=== PATIENT | male | born 1995 | race Caucasian/White ===

== ENCOUNTER 2021-05-05 17:33 | Inpatient (IN) ==
[2021-05-05] MEDS ORDERED: ONDANSETRON INJ 2 MG/ML 2 ML VIAL IV STA (18:27)
[2021-05-05] MEDS ORDERED: PANTOprazole 80 MG in DEXTROSE 5% 100 ML IV ONE (18:27)
[2021-05-05] MEDS ORDERED: FAMOTIDINE 20MG IV PUSH 20 MG/5 ML SYR IV STA (18:27)
[2021-05-05] MEDS ORDERED: SODIUM CHLORIDE 0.9% 1000ML 1,000 ML IV SCH (18:30)
--- NOTE | 2021-05-05 18:30 | Emergency Department Note ---
Impression & Plan Acute GI bleeding, Hematemesis, Black stool, Tachycardia ED Provider Note NAME: CATALINA FUNG AGE: 25 SEX: M : 1995 ARRIVES VIA: Walk-In INFORMANT: [Patient] ED PROVIDER(S): [Tanner Jacome MD] CHIEF COMPLAINT: Vomiting blood HISTORY OF PRESENT ILLNESS: The patient is a 25-year-old male who states that yesterday in the morning, he had a black stool. He states he did not eat much yesterday and tried to take it easy. This morning, he was urinating when he became very lightheaded and dizzy and his ears were ringing. His heart rate increased. He became nauseated and vomited dark, red and coffee-ground material. He has had black stool today as well. The patient does not use aspirin, Aleve or Advil regularly. He has no history of GI bleeding or of ulcer. He is on no prescribed medications. There has been no chest pain. No fever. He has had no cough or congestion. He denies any abdominal pain. REVIEW OF SYSTEMS: See HPI for pertinent positives and negatives. A total of ten systems were reviewed and were otherwise negative. PMHx/PSHx: See Below SOCIAL HISTORY: See Below. PHYSICAL EXAM: GENERAL: Patient is in no acute distress. HEENT: No acute trauma, normocephalic atraumatic, mucous membranes moist, no nasal congestion, no scleral icterus. NECK: No stridor, no adenopathy, no meningismus, trachea is midline. LUNGS: Clear to auscultation bilaterally, no wheeze, no rhonchi, breath sounds equal. HEART: Tachycardic, regular rhythm, no murmurs. ABDOMEN: Soft, nontender, bowel sounds positive, no hernias, no peritonitis. EXTREMITIES: No cyanosis or edema, full range of motion of all the joints without pain or difficulty, no signs for acute trauma. NEUROLOGIC: Oriented x 3, no acute motor or sensory deficits, no focal weakness. SKIN: No rash, no jaundice, no diaphoresis. Rectal: Performed with a customer service teller. Black stool, heme positive. DIFFERENTIAL DIAGNOSIS: Diverticulosis, AVM, coagulopathy, colitis, inflammatory bowel disease, malignancy, Eileen-Archibald tear, esophagitis, peptic ulcer disease, variceal bleed, gastritis, epistaxis, fissure, hemorrhoids, as well as other pathologies. EMERGENCY DEPARTMENT COURSE/PROCEDURES: ECG: Indication was tachycardia and weakness. The ECG shows a sinus tachycardia with a rate of 117. There is no ST elevation, no PVCs. The QTc is 404. Continuous Cardiac Monitoring: An order was placed for continuous cardiac monitoring. The monitor shows a rate of 100 with normal sinus rhythm. MEDICAL DECISION MAKING: There is no leukocytosis. The patient does have a mild anemia but certainly, he is not in need of any emergent blood transfusion. Platelet count is mildly elevated. There was no coagulopathy. No significant electrolyte abnormality in need of emergent correction. No worrisome liver enzyme elevation. No evidence for pancreatitis. ECG shows a sinus tachycardia, no acute ischemia. Cardiac enzyme testing x1 is not consistent with acute cardiac injury. Chest film does not show pneumonia or CHF. No free air. Covid testing was negative. On exam, the patient was somewhat tachycardic. His stool was black and heme positive. Patient was given IV Pepcid, IV saline and IV Protonix. He was given IV Zofran. The patient is in need of a hospital stay. He does not require an emergent blood transfusion. He will need a GI consult and likely an endoscopy. His GI bleeding is likely upper. I spoke to the patient and case management. The on-call hospitalist was consulted. Past Med/Surg History Medical History No significant medical problems Social History Smoking Status: Former smoker Tobacco Type: Cigarettes Feels Safe at Home: Yes Allergies Allergies Allergy/AdvReac Type Severity Reaction Status Date / Time No Known Allergies Allergy Unverified 05/05/21 20:14 Home Meds Home Medications Medication Instructions Recorded Confirmed No Known Home Medications 05/05/21 05/05/21 Results & Data (ED) Vital Signs Vital Signs - 24 hr 05/05/21 17:39 05/05/21 18:38 05/05/21 18:39 Temperature 36.8 C Temperature Source Oral Pulse Rate 132 H Pulse Rate [Right Apical] 117 H Pulse Rhythm [Right Apical] Regular Respiratory Rate 20 18 Respiratory Effort / Characteristics Non-Labored Respiratory Depth Normal Normal Respiratory Pattern Blood Pressure 112/64 Blood Pressure [Right Arm] 127/75 Blood Pressure Mean 80 Blood Pressure Mean [Right Arm] 92 Blood Pressure Position [Right Arm] Lying Pulse Oximetry 99 97 97 Oxygen Delivery Method Room Air Room Air Room Air Sepsis Recent Fever Within 48 Hours No Sepsis New/Unexplained Change in Mental Status N/A Sepsis Action Taken by Nursing No Action Required 05/05/21 19:32 05/05/21 21:00 Temperature Temperature Source Pulse Rate Pulse Rate [Right Apical] 100 H 100 H Pulse Rhythm [Right Apical] Respiratory Rate 18 16 Respiratory Effort / Characteristics Non-Labored Spontaneous Non-Labored Spontaneous Respiratory Depth Normal Normal Respiratory Pattern Regular Regular Blood Pressure Blood Pressure [Right Arm] 115/76 113/65 Blood Pressure Mean Blood Pressure Mean [Right Arm] 89 81 Blood Pressure Position [Right Arm] Lying Lying Pulse Oximetry 98 97 Oxygen Delivery Method Room Air Room Air Sepsis Recent Fever Within 48 Hours Sepsis New/Unexplained Change in Mental Status Sepsis Action Taken by Alf Medications Current Medication List: was personally reviewed by me Laboratory Data Attestation: I reviewed the patient's lab results. Result diagrams: 05/05/21 18:40 05/05/21 18:40 Lab Results 05/05/21 05/05/21 05/05/21 Range/Units 18:40 18:40 18:40 WBC 8.48 (4.8-10.8) K/uL RBC 4.72 (4.7-6.1) M/uL Hgb 13.6 L (14.0-18.0) g/dL Hct 40.2 L (42-52) % MCV 85.2 (80-100) fL MCH 28.8 (25-34) pg MCHC 33.8 (32-36) g/dL RDW Std Deviation 39.0 (36.4-46.3) fL RDW Coeff of Chidi 12.5 (11.5-14.5) % Plt Count 482 H (130-400) K/uL MPV 9.9 (7.4-10.4) fL Immature Gran % (Auto) 1.1 % Neut % (Auto) 66.7 % Lymph % (Auto) 21.9 % [place]ance % (Auto) 9.0 % Eos % (Auto) 0.6 % Baso % (Auto) 0.7 % Neut # (Auto) 5.66 (1.4-6.5) K/uL Lymph # (Auto) 1.86 (1.2-3.4) K/uL [place] # (Auto) 0.76 H (0.11-0.59) K/uL Eos # (Auto) 0.05 (0-0.5) K/uL Baso # (Auto) 0.06 (0-0.2) K/uL Immature Gran # (Auto) 0.09 H (0.00-0.02) K/uL PT 10.8 (9.0-12.0) Seconds INR 1.1 (0.9-1.1) APTT 20.8 L (21.0-31.0) Seconds PTT Ratio 0.8 Sodium (136-145) mmol/L Potassium (3.5-5.1) mmol/L Chloride (98-107) mmol/L Carbon Dioxide (21-32) mmol/L Anion Gap (3-11) BUN (7-18) mg/dl Creatinine (0.6-1.4) mg/dl Est Cr Clr Drug Dosing ml/min Est GFR ( Amer) ml/min Est GFR (Non-Af Amer) ml/min BUN/Creatinine Ratio (10-20) Glucose (70-99) mg/dl Calcium (8.5-10.1) mg/dl Total Bilirubin (0.2-1) mg/dl AST (15-37) U/L ALT (12-78) U/L Alkaline Phosphatase (45-117) U/L Troponin I (0-0.045) ng/ml Total Protein (6.4-8.2) gm/dl Albumin (3.4-5.0) gm/dl Globulin (2.5-4.0) gm/dl Albumin/Globulin Ratio (0.9-2) Lipase (73-393) U/L COVID-19 Eval Order SARS-CoV-2 (PCR) (Negative) Blood Type O Negative Antibody Screen NEGATIVE 05/05/21 05/05/21 05/05/21 Range/Units 18:40 18:47 18:47 WBC (4.8-10.8) K/uL RBC (4.7-6.1) M/uL Hgb (14.0-18.0) g/dL Hct (42-52) % MCV (80-100) fL MCH (25-34) pg MCHC (32-36) g/dL RDW Std Deviation (36.4-46.3) fL RDW Coeff of Chidi (11.5-14.5) % Plt Count (130-400) K/uL MPV (7.4-10.4) fL Immature Gran % (Auto) % Neut % (Auto) % Lymph % (Auto) % [place] % (Auto) % Eos % (Auto) % Baso % (Auto) % Neut # (Auto) (1.4-6.5) K/uL Lymph # (Auto) (1.2-3.4) K/uL [place] # (Auto) (0.11-0.59) K/uL Eos # (Auto) (0-0.5) K/uL Baso # (Auto) (0-0.2) K/uL Immature Gran # (Auto) (0.00-0.02) K/uL PT (9.0-12.0) Seconds INR (0.9-1.1) APTT (21.0-31.0) Seconds PTT Ratio Sodium 140 (136-145) mmol/L Potassium 4.3 (3.5-5.1) mmol/L Chloride 107 (98-107) mmol/L Carbon Dioxide 26 (21-32) mmol/L Anion Gap 7.0 (3-11) BUN 25 H (7-18) mg/dl Creatinine 1.17 (0.6-1.4) mg/dl Est Cr Clr Drug Dosing 118.9 ml/min Est GFR ( Amer) 99.1 ml/min Est GFR (Non-Af Amer) 85.5 ml/min BUN/Creatinine Ratio 21.6 H (10-20) Glucose 105 H (70-99) mg/dl Calcium 9.3 (8.5-10.1) mg/dl Total Bilirubin 0.6 (0.2-1) mg/dl AST 21 (15-37) U/L ALT 52 (12-78) U/L Alkaline Phosphatase 40 L (45-117) U/L Troponin I < 0.015 (0-0.045) ng/ml Total Protein 7.7 (6.4-8.2) gm/dl Albumin 3.5 (3.4-5.0) gm/dl Globulin 4.2 H (2.5-4.0) gm/dl Albumin/Globulin Ratio 0.8 L (0.9-2) Lipase 87 (73-393) U/L COVID-19 Eval Order Covid19 at [facility] SARS-CoV-2 (PCR) NEGATIVE (Negative) Blood Type Antibody Screen Administered Medications Discontinued Medications Sodium Chloride (Nss 1000ml) 1,000 mls @ 999 mls/hr IV .[id number] QUINTIN Stop: 05/05/21 19:30 Last Infusion: 05/05/21 20:12 Dose: 0 mls/hr Documented by: [id number] Admin: 05/05/21 18:53 Dose: 999 mls/hr Documented by: [id number] Famotidine (Pepcid 20mg Iv Push) 20 mg in 5 mls @ 2.5 mls/min IV NOW STA Stop: 05/05/21 18:28 Last Admin: 05/05/21 18:53 Dose: 2.5 mls/min Documented by: [id number] Pantoprazole Sodium 80 mg/ (Dextrose) 100 mls @ 400 mls/hr IV NOW ONE Stop: 05/05/21 18:41 Last Infusion: 05/05/21 19:17 Dose: 0 mls/hr Documented by: [id number] Admin: 05/05/21 19:03 Dose: 400 mls/hr Documented by: [id number] Ondansetron HCl (Ondansetron Inj 2 Mg/Ml 2 Ml Vial) 4 mg IV ONE STA Stop: 05/05/21 18:28 Last Admin: 05/05/21 18:54 Dose: 4 mg Documented by: [id number] Imaging Data Radiologist's Impression: Chest X-Ray 05/05/21 18:27 XR chest 1V portable CLINICAL HISTORY: vomiting COMPARISON STUDY: No previous studies for comparison. FINDINGS: The cardiac and mediastinal contours are normal. There is no evidence of focal pulmonary consolidation. There is no evidence of failure. No pleural effusions are visualized.[There is no free intraperitoneal air. IMPRESSION: No active disease in the chest. ACT 112: Negative or not required by law. Electronically signed by: Gianni Allen M.D. 05/05/2021 7:01 PM Discharge Plan Visit Data Chief Complaint: Vomiting Stated Complaint: VOMITING BLOOD ED Provider: Tanner Jacome Discharge Problem: Acute GI bleeding, Hematemesis, Black stool, Tachycardia Patient Disposition: Admitted As Inpatient Condition: Fair Forms Stand Alone Forms: [employer] Prescriptions Prescriptions: No Action No Known Home Medications RF: 0 Referrals Referrals: Dominique Mcgill PA-C [Primary Care Provider] - Discharge Problem: Hematemesis Qualifiers: Nausea presence: with nausea Qualified Code(s): K92.0 - Hematemesis
[2021-05-05 18:57] LABS: Basophils # (auto) 0.06 K/uL (0-0.2); Basophils % (auto) 0.7 %; Eosinophils # (auto) 0.05 K/uL (0-0.5); Eosinophils % (auto) 0.6 %; Hematocrit (blood only) 40.2 % (42-52); Hemoglobin 13.6 g/dL (14.0-18.0); Immature Granulocytes # (auto) 0.09 K/uL (0.00-0.02); Immature Granulocytes % (auto) 1.1 %; Lymphocytes # (auto) 1.86 K/uL (1.2-3.4); Lymphocytes % (auto) 21.9 %; Mean Corpuscular Hemoglobin 28.8 pg (25-34); Mean Corpuscular Hgb Conc 33.8 g/dL (32-36); Mean Corpuscular Volume 85.2 fL (80-100); Mean Platelet Volume 9.9 fL (7.4-10.4); Monocytes # (auto) 0.76 K/uL (0.11-0.59); Neutrophils # (auto) 5.66 K/uL (1.4-6.5); Neutrophils % (auto) 66.7 %; Platelet Count 482 K/uL (130-400); RDW Coefficient of Variation 12.5 % (11.5-14.5); Red Blood Count 4.72 M/uL (4.7-6.1); White Blood Count 8.48 K/uL (4.8-10.8)
--- NOTE | 2021-05-05 19:03 | XRay Report ---
XR chest 1V portable CLINICAL HISTORY: vomiting COMPARISON STUDY: No previous studies for comparison. FINDINGS: The cardiac and mediastinal contours are normal. There is no evidence of focal pulmonary co nsolidation. There is no evidence of failure. No pleural effusions are visualized.[There is no free i ntraperitoneal air. IMPRESSION: No active disease in the chest. ACT 112: Negative or not required by law. Electronically signed by: Gianni Allen M.D. 05/05/2021 7:01 PM
[2021-05-05 19:15] LABS: INR 1.1 (0.9-1.1); Partial Thromboplastin Ratio 0.8; Partial Thromboplastin Time 20.8 Seconds (21.0-31.0); Prothrombin Time 10.8 Seconds (9.0-12.0)
[2021-05-05 19:16] LABS: Alanine Aminotransferase 52 U/L (12-78); Albumin Level 3.5 gm/dl (3.4-5.0); Aspartate Aminotransferase 21 U/L (15-37); BUN Creatinine Ratio 21.6 (10-20); Blood Urea Nitrogen 25 mg/dl (7-18); Calcium 9.3 mg/dl (8.5-10.1); Carbon Dioxide 26 mmol/L (21-32); Chloride 107 mmol/L (98-107); Creatinine Clr Calc Pharmacy 118.9 ml/min; Est GFR (African American) 99.1 ml/min; Est GFR (Non-African American) 85.5 ml/min; Glucose 105 mg/dl (70-99); Lipase 87 U/L (73-393); Potassium 4.3 mmol/L (3.5-5.1); Sodium 140 mmol/L (136-145)
[2021-05-05 19:21] LABS: Albumin Globulin Ratio 0.8 (0.9-2); Alkaline Phosphatase 40 U/L (45-117); Bilirubin,Total 0.6 mg/dl (0.2-1); Globulin 4.2 gm/dl (2.5-4.0); Total Protein 7.7 gm/dl (6.4-8.2); Troponin I < 0.015 ng/ml (0-0.045)
--- NOTE | 2021-05-05 23:09 | History and Physical Report ---
DATE OF ADMISSION: 05/05/2021. CHIEF COMPLAINT: Hematemesis. HISTORY OF PRESENT ILLNESS: This is a 25-year-old male with no significant past medical history, not on any medications. As per Epic, it looks like he gets HSV flares once in a while, presents with hematemesis. The patient says he had black stools yesterday and today morning when he woke up, he felt dizzy, lightheaded, numb in the ears and palpitations and then he had episodes of vomiting where he vomited 3 times with blood, significant amount and also had an episode of black stool. Since then he has no more episodes. That is the reason he came to the ER. Denies taking any aspirin or Advil or Aleve or any pain medications. He says he takes once in a while Tums for his acid reflux, but he has not been taking it recently. Denies any alcohol use or any drug abuse. Currently, resting comfortably and hemodynamically stable. He was tachycardic when he came in. With fluids, tachycardia improved. Denies any chest pain, no shortness of breath, no cough, no fever, no chills, no abdominal pain, no headache, no blurred visions, no runny nose, no sore throat, no cough. Otherwise, no swelling in the legs, no rash. ALLERGIES: No known drug allergies. PAST MEDICAL HISTORY: Nothing significant. PAST SURGICAL HISTORY: Dental surgery. MEDICATIONS: None. FAMILY HISTORY: Significant for maternal grandfather had cancer; paternal grandfather had dementia. SOCIAL HISTORY: Denies any smoking, denies any alcohol use and denies any drug use. REVIEW OF SYSTEMS: As per HPI. Rest of the review of systems is negative. PHYSICAL EXAMINATION: GENERAL: The patient is obese, not in acute distress. VITAL SIGNS: Temperature 36.8, pulse 100, respiratory rate 16, blood pressure 113/65, oxygen 97% on room air. HEENT: Pupils equal, round and reactive to light. Oral mucosa moist. NECK: No JVD, no neck masses. HEART: S1 and S2 heard. Regular rate and rhythm. No murmur, no gallop. RESPIRATORY SYSTEM: Normal AP diameter. No accessory muscle use. No wheezing, no crackles. ABDOMEN: Soft, bowel sounds present, nontender, no distention. CENTRAL NERVOUS SYSTEM: Cranial nerves II-XII grossly intact, nonfocal. EXTREMITIES: No edema, no erythema. LABORATORY DATA: WBC 8.4, hemoglobin 13.6, hematocrit 40.2, platelets 482. PT 10.8, INR 1.1, APTT 20.8. Sodium 140, potassium 4.3, chloride 107, bicarbonate 26, BUN 25, creatinine 1.1, serum glucose 105, calcium 9.3, total bilirubin 0.6, AST 21, ALT 52, alkaline phosphatase 40. Troponin I less than 0.015. Lipase 87. SARS-CoV-2 PCR negative. IMAGING DATA: Chest x-ray: No active disease in the chest. EKG: Sinus tachycardia at a rate of 117, no acute ST changes seen. ASSESSMENT AND PLAN: This 25-year-old male presents with hematemesis. 1. Hematemesis: Etiology unclear. Has also had black stools. He showed the photographs of his hematemesis, seems significant bleed. He vomited 3 times at 5:00 a.m., after that no vomiting. His hemoglobin is 13.6. We do not have any baseline laboratories. When he came in, he was tachycardic, but currently with fluids, his tachycardia improved and the blood pressure is stable. Currently resting comfortably. Received a dose of IV Protonix 80 mg in the Emergency Room. We will start on Protonix drip. We will follow hemoglobin and hematocrit q.6 hours. We will keep him n.p.o. and consult gastrointestinal in the a.m. If he starts to bleed again, we will emergently call the gastrointestinal. Closely monitor. 2. Deep venous thrombosis prophylaxis: Sequential compression devices for now. DISPOSITION: Monitor in the tele floor. Expect to discharge home and follow with family doctor. Level 1 full code. Job ID: [id number] [facility]
[2021-05-06] MEDS ORDERED: NITROGLYCERIN SL 0.4 MG/TAB TAB SL PRN (05:25)
[2021-05-06] MEDS ORDERED: ONDANSETRON INJ 2 MG/ML 2 ML VIAL IV PRN (05:25)
[2021-05-06] MEDS ORDERED: D5W AND NSS 1,000 ML IV SCH (05:25)
[2021-05-06] MEDS ORDERED: PANTOprazole 40 MG in DEXTROSE 5% 100 ML IV SCH (05:30)
[2021-05-06 06:22] LABS: Hematocrit (blood only) 33.9 % (42-52); Hemoglobin 11.3 g/dL (14.0-18.0); Mean Corpuscular Hemoglobin 28.5 pg (25-34); Mean Corpuscular Hgb Conc 33.3 g/dL (32-36); Mean Corpuscular Volume 85.6 fL (80-100); Mean Platelet Volume 9.6 fL (7.4-10.4); Platelet Count 391 K/uL (130-400); RDW Coefficient of Variation 12.6 % (11.5-14.5); RDW Standard Deviation 39.6 fL (36.4-46.3); Red Blood Count 3.96 M/uL (4.7-6.1)
[2021-05-06 06:55] LABS: BUN Creatinine Ratio 21.9 (10-20); Calcium 8.2 mg/dl (8.5-10.1); Creatinine Clr Calc Pharmacy 123.1 ml/min; Est GFR (African American) 103.4 ml/min; Est GFR (Non-African American) 89.2 ml/min; Magnesium 2.6 mg/dl (1.8-2.4); Potassium 4.3 mmol/L (3.5-5.1)
[2021-05-06 07:23] LABS: ALC (manual) 2.59 K/uL (1.2-3.4); ANC (manual) 4.12 K/uL (1.4-6.5); Basophils # (manual) 0.07 K/uL (0-0.2); Basophils % (manual) 0.9 %; Eosinophils # (manual) 0.24 K/uL (0-0.5); Eosinophils % (manual) 3.1 %; Lymphocytes # (manual) 2.59 K/uL (1.2-3.4); Lymphocytes % (manual) 33.2 %; Metamyelocytes # (manual) 0.03 K/uL (0-0); Metamyelocytes % (manual) 0.4 %; Monocytes # (manual) 0.75 K/uL (0.11-0.59); Monocytes % (manual) 9.6 %; Neutrophils # (manual) 4.12 K/uL (1.4-6.5); Neutrophils % (manual) 52.8 %
--- NOTE | 2021-05-06 09:30 | Gastrointestinal Consultation ---
Date of Consultation May 06, 2021 Assessment & Plan (1) Black stool: 25 year old male admitted w/ black stools followed by hematemesis, downtrending HGB 13 --> 11 w/ slight BUN elevation at 25 NPO Continue IV PPI EGD today, timing TBD Thank you for allowing us to participate in the care of this patient. Please call with any acute changes, questions or concerns. Please see addendum below with additional recommendation from my supervising physician. Supervising Physician Co-Signing Physician Notes I have seen and examined the patient and discussed the management with SKYE Stock. One episode of hematemesis and reports of dark stools. PE: well nourished male in nad, HEENT- perrla, Abd - soft nt nd Slight drop in hgb, bun of 25 EGD for evaluation of self limited hematemesis and melena. History of Present Illness Reason for Consultation: hematemesis Requesting Physician: Mio Attending Physician: Seven Lieberman MD History of Present Illness 25 year old male without past medical history who presents through the ED with report of hematemesis. Pt was seen and evaluated, chart reviewed. He had darker, black stools the day before and felt lightheaded and dizzy. Next was followed by three episodes of hematemesis. No clots. No prior emesis or coffee ground emesis. Denies ETOH Denies blood thinners Denies NSAIDs Denies marijuana He was made NPO, started on IV PPI. HGB downtrending overnight from 13.6 to 11.3 BUN 25. Allergies Allergy/AdvReac Type Severity Reaction Status Date / Time No Known Allergies Allergy Unverified 05/05/21 20:14 Home Medications Medication Instructions Recorded Confirmed Type No Known Home Medications 05/05/21 05/05/21 History Patient History Medical History No significant medical problems Social History Smoking Status: Former smoker Tobacco Type: Cigarettes Feels Safe at Home: Yes Review of Systems Review of Systems: All systems reviewed & are unremarkable except as noted in HPI & below Physical Exam Constitutional: WD/WN, vitals as above Neck: trachea midline, no thyromegaly Respiratory: normal respiratory effort, lungs clear to auscultation Gastrointestinal (Abdomen): normal bowel sounds, soft, nontender, no hepatosplenomegaly Skin: no rashes, warm and dry Results & Data ([facility]) Vital Signs (Past 12 Hours) Vital Signs Pulse Resp BP Pulse Ox Pulse Ox 05/06/21 08:34 96 05/06/21 08:00 79 18 116/72 96 05/06/21 04:00 79 15 127/77 96 05/06/21 00:01 93 H 16 128/92 100 05/05/21 23:00 101 H 18 106/61 99 05/05/21 22:00 95 H 18 107/67 96 Laboratory Results 05/06/21 05/06/21 05/05/21 Range/Units 06:09 06:09 18:47 WBC 7.80 (4.8-10.8) K/uL RBC 3.96 L (4.7-6.1) M/uL Hgb 11.3 L (14.0-18.0) g/dL Hct 33.9 L (42-52) % MCV 85.6 (80-100) fL MCH 28.5 (25-34) pg MCHC 33.3 (32-36) g/dL RDW Std Deviation 39.6 (36.4-46.3) fL RDW Coeff of Chidi 12.6 (11.5-14.5) % Plt Count 391 (130-400) K/uL MPV 9.6 (7.4-10.4) fL Immature Gran % (Auto) % Neut % (Auto) % Lymph % (Auto) % [place] % (Auto) % Eos % (Auto) % Baso % (Auto) % Neut # (Auto) (1.4-6.5) K/uL Lymph # (Auto) (1.2-3.4) K/uL [place] # (Auto) (0.11-0.59) K/uL Eos # (Auto) (0-0.5) K/uL Baso # (Auto) (0-0.2) K/uL Immature Gran # (Auto) (0.00-0.02) K/uL Neutrophils % (Manual) 52.8 % Lymphocytes % (Manual) 33.2 % Monocytes % (Manual) 9.6 % Eosinophils % (Manual) 3.1 % Basophils % (Manual) 0.9 % Metamyelocytes % (Man) 0.4 % Neutrophils # (Manual) 4.12 (1.4-6.5) K/uL Total Absolute Neuts 4.12 (1.4-6.5) K/uL Lymphocytes # (Manual) 2.59 (1.2-3.4) K/uL Total Abs Lymphocytes 2.59 (1.2-3.4) K/uL Monocytes # (Manual) 0.75 H (0.11-0.59) K/uL Eosinophils # (Manual) 0.24 (0-0.5) K/uL Basophils # (Manual) 0.07 (0-0.2) K/uL Metamyelocytes # (Man) 0.03 H (0-0) K/uL PT (9.0-12.0) Seconds INR (0.9-1.1) APTT (21.0-31.0) Seconds PTT Ratio Sodium 140 (136-145) mmol/L Potassium 4.3 (3.5-5.1) mmol/L Chloride 108 H (98-107) mmol/L Carbon Dioxide 30 (21-32) mmol/L Anion Gap 2.0 L (3-11) BUN 25 H (7-18) mg/dl Creatinine 1.13 (0.6-1.4) mg/dl Est Cr Clr Drug Dosing 123.1 ml/min Est GFR ( Amer) 103.4 ml/min Est GFR (Non-Af Amer) 89.2 ml/min BUN/Creatinine Ratio 21.9 H (10-20) Glucose 88 (70-99) mg/dl Calcium 8.2 L (8.5-10.1) mg/dl Magnesium 2.6 H (1.8-2.4) mg/dl Total Bilirubin (0.2-1) mg/dl AST (15-37) U/L ALT (12-78) U/L Alkaline Phosphatase (45-117) U/L Troponin I (0-0.045) ng/ml Total Protein (6.4-8.2) gm/dl Albumin (3.4-5.0) gm/dl Globulin (2.5-4.0) gm/dl Albumin/Globulin Ratio (0.9-2) Lipase (73-393) U/L COVID-19 Eval Order SARS-CoV-2 (PCR) NEGATIVE (Negative) Blood Type Antibody Screen 05/05/21 05/05/21 05/05/21 Range/Units 18:47 18:40 18:40 WBC (4.8-10.8) K/uL RBC (4.7-6.1) M/uL Hgb (14.0-18.0) g/dL Hct (42-52) % MCV (80-100) fL MCH (25-34) pg MCHC (32-36) g/dL RDW Std Deviation (36.4-46.3) fL RDW Coeff of Chidi (11.5-14.5) % Plt Count (130-400) K/uL MPV (7.4-10.4) fL Immature Gran % (Auto) % Neut % (Auto) % Lymph % (Auto) % [place] % (Auto) % Eos % (Auto) % Baso % (Auto) % Neut # (Auto) (1.4-6.5) K/uL Lymph # (Auto) (1.2-3.4) K/uL [place] # (Auto) (0.11-0.59) K/uL Eos # (Auto) (0-0.5) K/uL Baso # (Auto) (0-0.2) K/uL Immature Gran # (Auto) (0.00-0.02) K/uL Neutrophils % (Manual) % Lymphocytes % (Manual) % Monocytes % (Manual) % Eosinophils % (Manual) % Basophils % (Manual) % Metamyelocytes % (Man) % Neutrophils # (Manual) (1.4-6.5) K/uL Total Absolute Neuts (1.4-6.5) K/uL Lymphocytes # (Manual) (1.2-3.4) K/uL Total Abs Lymphocytes (1.2-3.4) K/uL Monocytes # (Manual) (0.11-0.59) K/uL Eosinophils # (Manual) (0-0.5) K/uL Basophils # (Manual) (0-0.2) K/uL Metamyelocytes # (Man) (0-0) K/uL PT 10.8 (9.0-12.0) Seconds INR 1.1 (0.9-1.1) APTT 20.8 L (21.0-31.0) Seconds PTT Ratio 0.8 Sodium 140 (136-145) mmol/L Potassium 4.3 (3.5-5.1) mmol/L Chloride 107 (98-107) mmol/L Carbon Dioxide 26 (21-32) mmol/L Anion Gap 7.0 (3-11) BUN 25 H (7-18) mg/dl Creatinine 1.17 (0.6-1.4) mg/dl Est Cr Clr Drug Dosing 118.9 ml/min Est GFR ( Amer) 99.1 ml/min Est GFR (Non-Af Amer) 85.5 ml/min BUN/Creatinine Ratio 21.6 H (10-20) Glucose 105 H (70-99) mg/dl Calcium 9.3 (8.5-10.1) mg/dl Magnesium (1.8-2.4) mg/dl Total Bilirubin 0.6 (0.2-1) mg/dl AST 21 (15-37) U/L ALT 52 (12-78) U/L Alkaline Phosphatase 40 L (45-117) U/L Troponin I < 0.015 (0-0.045) ng/ml Total Protein 7.7 (6.4-8.2) gm/dl Albumin 3.5 (3.4-5.0) gm/dl Globulin 4.2 H (2.5-4.0) gm/dl Albumin/Globulin Ratio 0.8 L (0.9-2) Lipase 87 (73-393) U/L COVID-19 Eval Order Covid19 at [facility] SARS-CoV-2 (PCR) (Negative) Blood Type Antibody Screen 05/05/21 05/05/21 Range/Units 18:40 18:40 WBC 8.48 (4.8-10.8) K/uL RBC 4.72 (4.7-6.1) M/uL Hgb 13.6 L (14.0-18.0) g/dL Hct 40.2 L (42-52) % MCV 85.2 (80-100) fL MCH 28.8 (25-34) pg MCHC 33.8 (32-36) g/dL RDW Std Deviation 39.0 (36.4-46.3) fL RDW Coeff of Chidi 12.5 (11.5-14.5) % Plt Count 482 H (130-400) K/uL MPV 9.9 (7.4-10.4) fL Immature Gran % (Auto) 1.1 % Neut % (Auto) 66.7 % Lymph % (Auto) 21.9 % [place] % (Auto) 9.0 % Eos % (Auto) 0.6 % Baso % (Auto) 0.7 % Neut # (Auto) 5.66 (1.4-6.5) K/uL Lymph # (Auto) 1.86 (1.2-3.4) K/uL [place] # (Auto) 0.76 H (0.11-0.59) K/uL Eos # (Auto) 0.05 (0-0.5) K/uL Baso # (Auto) 0.06 (0-0.2) K/uL Immature Gran # (Auto) 0.09 H (0.00-0.02) K/uL Neutrophils % (Manual) % Lymphocytes % (Manual) % Monocytes % (Manual) % Eosinophils % (Manual) % Basophils % (Manual) % Metamyelocytes % (Man) % Neutrophils # (Manual) (1.4-6.5) K/uL Total Absolute Neuts (1.4-6.5) K/uL Lymphocytes # (Manual) (1.2-3.4) K/uL Total Abs Lymphocytes (1.2-3.4) K/uL Monocytes # (Manual) (0.11-0.59) K/uL Eosinophils # (Manual) (0-0.5) K/uL Basophils # (Manual) (0-0.2) K/uL Metamyelocytes # (Man) (0-0) K/uL PT (9.0-12.0) Seconds INR (0.9-1.1) APTT (21.0-31.0) Seconds PTT Ratio Sodium (136-145) mmol/L Potassium (3.5-5.1) mmol/L Chloride (98-107) mmol/L Carbon Dioxide (21-32) mmol/L Anion Gap (3-11) BUN (7-18) mg/dl Creatinine (0.6-1.4) mg/dl Est Cr Clr Drug Dosing ml/min Est GFR ( Amer) ml/min Est GFR (Non-Af Amer) ml/min BUN/Creatinine Ratio (10-20) Glucose (70-99) mg/dl Calcium (8.5-10.1) mg/dl Magnesium (1.8-2.4) mg/dl Total Bilirubin (0.2-1) mg/dl AST (15-37) U/L ALT (12-78) U/L Alkaline Phosphatase (45-117) U/L Troponin I (0-0.045) ng/ml Total Protein (6.4-8.2) gm/dl Albumin (3.4-5.0) gm/dl Globulin (2.5-4.0) gm/dl Albumin/Globulin Ratio (0.9-2) Lipase (73-393) U/L COVID-19 Eval Order SARS-CoV-2 (PCR) (Negative) Blood Type O Negative Antibody Screen NEGATIVE
--- NOTE | 2021-05-06 10:28 | Anesthesiology Consultation ---
Date of Service May 06, 2021 Assessment & Plan ASA ASA2 Proposed Anesthesia Anesthesia Type: MAC Risk / Benefits Reviewed With: PT / POA / Parent / Guardian, Accepts Plan and Informed Consent Obtained History Surgery Operation Date: 05/06/21 16:30 Proposed Procedures p Esophagogastroduodenoscopy Dr. Maricarmen Hernadez MD Height/Weight Height: 5 ft 10 in Weight: 110.1 kg Allergies Allergy/AdvReac Type Severity Reaction Status Date / Time No Known Allergies Allergy Unverified 05/05/21 20:14 Medications Home Medications Medication Instructions Recorded Confirmed Last Taken No Known Home Medications 05/05/21 05/05/21 Unknown Active Medications Generic Name Dose Route Start Last Admin Trade Name Freq PRN Reason Stop Dose Admin Pantoprazole Sodium 40 mg/ 100 mls @ 20 mls/hr 05/06/21 05:30 05/06/21 06:46 Dextrose IV 06/05/21 05:29 8 mg/hr Q5H QUINTIN 20 mls/hr Administration 8 MG/HR Dextrose/Sodium Chloride 1,000 mls @ 125 mls/hr 05/06/21 05:25 05/06/21 06:39 D5w And Nss IV 06/05/21 05:24 125 mls/hr .Q8H QUINTIN Administration NPO Date Last Intake of Fluids: 05/06/21 Time Last Intake of Fluids: 00:00 Date Last Intake of Solids: 05/06/21 Time Last Intake of Solids: 00:00 Past Medical History Medical History No significant medical problems Exercise / Class Metabolic Activity II 4-5 Yardwork/Stairs/Walk up hill Past Anesthesia History No Hx of Anesthesia Complications and No Family Hx of Anesthesia Complications History of PONV No Hx of PONV and No Hx of Motion Sickness Social History Smoking Status: Former smoker Review of Systems denies fever/cough/ colds/ chest pain/ SOB/ PRADIP denies PRADIP Physical Exam Vital Signs Last Vital Signs Temp 36.8 C 05/05/21 17:39 Pulse 79 05/06/21 08:00 Resp 18 05/06/21 08:00 BP 116/72 05/06/21 08:00 Pulse Ox 96 05/06/21 08:34 ENMT Mouth: no TMJ abnormality and no dentition abnormality Thyromental Distance: > or= 3.5 Finger Breadths Mallampati Class: II Neck neck extension not limited Respiratory normal respiratory effort; no respiratory distress Auscultation: lungs clear to auscultation bilaterally Cardiovascular Rate/Rhythm: regular rate and regular rhythm Neurologic moves all extremities Psychiatric Orientation: alert and oriented x 3 Testing Laboratory Results 05/06/21 06:09 05/06/21 06:09 PT 10.8 Seconds (9.0-12.0) 05/05/21 18:40 INR 1.1 (0.9-1.1) 05/05/21 18:40 APTT 20.8 Seconds (21.0-31.0) L 05/05/21 18:40 Blood Type O Negative 05/05/21 18:40 Antibody Screen NEGATIVE 05/05/21 18:40
[2021-05-06] MEDS ORDERED: PROPOFOL IV EMULSION 10 MG/ML 20 ML VIAL IV ONE (10:36)
[2021-05-06] MEDS ORDERED: LIDOCAINE 2% 2 ML VIAL/AMP(20MG/ML) INFIL ONE ×2 (10:36)
--- NOTE | 2021-05-06 11:00 | GI REPORT ---
Patient Name: Archie Suggs Procedure Date: 05/06/2021 10:46 AM Date of : 1995 Admit Type: Inpatient Age: 25 Gender: Male Attending MD: Marjan Hernadez M.d. Procedure: Upper GI endoscopy Providers: Marjan Hernadez M.d. Referring MD: JAVIER ROMAN Indications: Melena Medicines: Propofol per Anesthesia, Lidocaine Complications: No immediate complications. Estimated Blood Loss: Estimated blood loss: none. Procedure: Pre-Anesthesia Assessment: - Patient identification and proposed procedure were verified prior to the procedure by the physician, the nurse and the anesthesiologist. The procedure was verified in the pre-procedure area. - Prior to the procedure, a History and Physical was performed, and patient medications, allergies and sensitivities were reviewed. The patient's tolerance of previous anesthesia was reviewed. - The risks and benefits of the procedure and the sedation options and risks were discussed with the patient. All questions were answered and informed consent was obtained. After obtaining informed consent, the endoscope was passed under direct vision. Throughout the procedure, the patient's blood pressure, pulse, and oxygen saturations were monitored continuously. The Endoscope was introduced through the mouth, and advanced to the second part of duodenum. The upper GI endoscopy was accomplished without difficulty. The patient tolerated the procedure well. Findings: The examined esophagus appeared normal. One superficial esophageal ulcer without stigmata of recent bleeding was found. The Z-line appeared regular. The examined stomach appeared normal. Localized mildly erythematous mucosa without active bleeding was found in the duodenal bulb. The second portion of the duodenum appeared normal. Impression: - Normal esophagus. - Esophageal ulcer with no stigmata of recent bleeding. - Z-line regular. - Normal stomach. - Erythematous duodenopathy in the bulb. - Normal second portion of the duodenum. Recommendation: - PPI twice daily for 8 weeks, then once daily thereafter. - Avoid tobacco, ethanol. Claudio Conte M.d. 05/06/2021 10:59:49 AM This report has been signed electronically. Note Initiated On: 05/06/2021 10:46 AM Number of Addenda: 0 I attest to the content of the Intraoperative Record and orders documented therein, exceptions below {[id number]}
--- NOTE | 2021-05-06 11:18 | Anesthesiology Progress Note ---
Date of Service May 06, 2021 Anesthesia Post Procedure Vital Signs Vital Signs: Temp Pulse Pulse Resp BP BP BP 05/06/21 10:59 87 18 124/74 05/06/21 10:30 36.8 C 87 18 112/58 L 05/06/21 08:34 05/06/21 08:00 79 18 116/72 05/06/21 04:00 79 15 127/77 05/06/21 00:01 93 H 16 128/92 05/05/21 23:00 101 H 18 106/61 05/05/21 22:00 95 H 18 107/67 05/05/21 21:00 100 H 16 113/65 05/05/21 19:32 100 H 18 115/76 05/05/21 18:39 05/05/21 18:38 117 H 18 127/75 05/05/21 17:39 36.8 C 132 H 20 112/64 Pulse Ox Pulse Ox 05/06/21 10:59 96 05/06/21 10:30 97 05/06/21 08:34 96 05/06/21 08:00 96 05/06/21 04:00 96 05/06/21 00:01 100 05/05/21 23:00 99 05/05/21 22:00 96 05/05/21 21:00 97 05/05/21 19:32 98 05/05/21 18:39 97 05/05/21 18:38 97 05/05/21 17:39 99 Transfer of Care Handoff Completed per policy Notes Mental Status: alert / awake / arousable and participated in evaluation Patient Amnestic to Procedure: Yes Nausea / Vomiting: adequately controlled Pain: adequately controlled Airway Patency, RR, SpO2: stable & adequate BP & HR: stable & adequate Hydration State: stable & adequate Anesthetic Complications: no major complications apparent and Pt Satisfied with anesthetic care
[2021-05-06 11:58] LABS: Hematocrit (blood only) 33.1 % (42-52); Hemoglobin 11.1 g/dL (14.0-18.0)
--- NOTE | 2021-05-06 17:01 | Electrocardiogram Report ---
Test Reason : Blood Pressure : / mmHG Vent. Rate : 117 BPM Atrial Rate : 117 BPM P-R Int : 146 ms QRS Dur : 068 ms QT Int : 290 ms P-R-T Axes : 047 046 048 degrees QTc Int : 404 ms Sinus tachycardia Otherwise normal ECG No previous ECGs available Confirmed by Randall Almanza ([id number]) on 05/06/2021 5:00:32 PM Referred By: REFERRED SELF Confirmed By:Ricardo Almanza
--- NOTE | 2021-05-06 18:41 | Discharge Summary ---
Date of Service May 06, 2021 Admission HPI Per Admitting Provider CHIEF COMPLAINT: Hematemesis. HISTORY OF PRESENT ILLNESS: This is a 25-year-old male with no significant past medical history, not on any medications. As per Epic, it looks like he gets HSV flares once in a while, presents with hematemesis. The patient says he had black stools yesterday and today morning when he woke up, he felt dizzy, lightheaded, numb in the ears and palpitations and then he had episodes of vomiting where he vomited 3 times with blood, significant amount and also had an episode of black stool. Since then he has no more episodes. That is the reason he came to the ER. Denies taking any aspirin or Advil or Aleve or any pain medications. He says he takes once in a while Tums for his acid reflux, but he has not been taking it recently. Denies any alcohol use or any drug abuse. Currently, resting comfortably and hemodynamically stable. He was tachycardic when he came in. With fluids, tachycardia improved. Denies any chest pain, no shortness of breath, no cough, no fever, no chills, no abdominal pain, no headache, no blurred visions, no runny nose, no sore throat, no cough. Otherwise, no swelling in the legs, no rash. ALLERGIES: No known drug allergies. PAST MEDICAL HISTORY: Nothing significant. PAST SURGICAL HISTORY: Dental surgery. MEDICATIONS: None. FAMILY HISTORY: Significant for maternal grandfather had cancer; paternal grandfather had dementia. SOCIAL HISTORY: Denies any smoking, denies any alcohol use and denies any drug use. REVIEW OF SYSTEMS: As per HPI. Rest of the review of systems is negative. Admission Exam Per Admitting Provider GENERAL: The patient is obese, not in acute distress. VITAL SIGNS: Temperature 36.8, pulse 100, respiratory rate 16, blood pressure 113/65, oxygen 97% on room air. HEENT: Pupils equal, round and reactive to light. Oral mucosa moist. NECK: No JVD, no neck masses. HEART: S1 and S2 heard. Regular rate and rhythm. No murmur, no gallop. RESPIRATORY SYSTEM: Normal AP diameter. No accessory muscle use. No wheezing, no crackles. ABDOMEN: Soft, bowel sounds present, nontender, no distention. CENTRAL NERVOUS SYSTEM: Cranial nerves II-XII grossly intact, nonfocal. EXTREMITIES: No edema, no erythema. Principal Diagnosis Hematemesis Discharge Exam General- No acute distress Head- atraumatic Eyes- PERRL, EOMI, ENT- oropharynx clear Neck- supple, no JVD Lungs- clear to auscultation Heart- regular rhythm; no murmur Abdomen- normal bowel sounds, soft, nontender Extremities- no calf tenderness Neuro- alert, oriented x 3; PERRL, EOMI; no facial palsy; no dysarthria Skin- warm & dry Discharge Data Allergies Allergy/AdvReac Type Severity Reaction Status Date / Time No Known Allergies Allergy Unverified 05/06/21 11:20 Consultations 05/05/21 19:44 ED Decision to Admit Stat 05/06/21 07:00 Consult Gastroenterology Routine Procedures Performed Operation Date: 05/06/21 16:30 Actual Procedures p Esophagogastroduodenoscopy - Marjan Hernadez MD Ordered Studies XR chest 1V portable CLINICAL HISTORY: vomiting COMPARISON STUDY: No previous studies for comparison. FINDINGS: The cardiac and mediastinal contours are normal. There is no evidence of focal pulmonary consolidation. There is no evidence of failure. No pleural effusions are visualized.[There is no free intraperitoneal air. IMPRESSION: No active disease in the chest. ACT 112: Negative or not required by law. Electronically signed by: Gianni Allen M.D. 05/05/2021 7:01 PM Dictated: 05/05/211900Transcribed: 05/05/211900 Hospital Course (1) Hematemesis: (2) Acute GI bleeding: Present on admission with episodes vomited blood and dark stools. Hgb on admission 13.5, then dropped to 11.3. Hgb 11.1 today Gastro on board S/p EGD esophageal ulcer with no stigmata of recent bleeding. Normal stomach. Erythematous duodenopathy in the bulb. Normal second portion of the duodenum. GI recommended to continue PPI twice daily for 8 weeks, then once daily Pt was advised to avoid tobacco and alcohol Tolerated diet Clinically stable Ok to discharge home Disposition Will discharge home today Follow up with your primary care provider in 1 week Total Time Total Time Spent Total Time Spent (In Minutes): 40 minutes Discharge Plan Discharge Items Patient Disposition: Home - Self-Care Reason For Visit: VOMITING Discharge Diagnosis: Hematemesis Condition on Discharge: Fair Activity: Resume your previous activity Non-emergency contact: Primary Care Provider Call non-emergency contact if: you have any medication questions Follow-up/Referrals: Dominique Mcgill PA-C [Primary Care Provider] - Diet: Regular Addtl Attending Provider Instructions: Follow up with your primary care provider within 1 week Follow up with [facility] Gastroenterology outpatient Continue Pantoprazole 40mg twice a day for 8 weeks, then once daily after 8 weeks. Avoid any Alcohol and NSAIDS such as aspirin, Motrin, aleve, Naproxen, Ibuprofen, Advil to decrease the risk of bleeding Pending Studies at Discharge: No Stand-Alone Forms: My [facility], Smoking Cessation Medications and DC Order Prescriptions: New pantoprazole [Protonix] 40 mg tablet,delayed release (DR/EC) 40 mg PO BID Qty: 60 RF: 1 Discharge Orders: Discharge Order (Routine); Ordered 05/06/21 Ordered By: Seven Lieberman Admission Data Admit Date/Time: 05/05/21 21:33 Attending Provider: Seven Lieberman Admit Provider: Gerardo Henley Primary Care Provider: Dominique Mcgill Other Providers: Gerardo Henley ; Sarah Arriola ; Emmy Kirby ; Sarah Ball ; Roxy Leonardo ; Aren Swift ; Lyly Henriquez ; Harish Yao ; Mitul Leigh ; Toma Randolph ; Shruthi Aviles ; Merle Victor ; Marjan Hernadez ; Ed Cabello Other Interventions: Discharge Summary Assessment (RN) Last Done: 05/06/21 16:42
--- NOTE | 2021-05-18 11:04 | Coding Query ---
CODING QUERY To promote full compliance with coding requirements relating to patient care, provider participation is requested in all cases of shutdown planner uncertainty. Please assist us with the question(s) below: Coding Question(s): Patient admitted with hematemesis . EGD revealed superficial esophageal ulcer w/o stigmata of recent bleed. Please document the etiology of the GI bleed , if known or suspected. Thank you ! Ish Schrader [facility] Physician's Response(s): suspected due to superficial esophageal ulcer Principal Diagnosis: "that condition established after study, to be chiefly responsible for occasioning the admission of the patient to the hospital for care." Co-Existing Principal Diagnosis: "when two or more diagnoses equally meet the criteria for principal diagnosis as determined by the circumstances of admission, diagnostic work up, and/or therapy provided, and the Alphabetic Index, Tabular List, or another coding guideline does not provide sequencing direction, any one of the diagnoses may be sequenced first." "When the physician has documented what appears to be a current diagnosis in the body of the record, but has not included the diagnosis in the final diagnostic statement, the physician should be asked whether the diagnosis should be added." (Source Coding [facility] 2 QTR90. p3-4) TYLERD
== END 2021-05-06 17:20 | disposition home or self-care (01) | DRG 382 ==
LOC: EDBD → ED 17:33 → EDINP 21:33